=== PATIENT | male | born 1975 | race Hispanic/Latino ===

== ENCOUNTER 2018-08-01 04:45 | Emergency (ER) | payer OTHER ==
[2018-08-01] MEDS ORDERED: TORADOL IV ONE (08:21)
[2018-08-01] MEDS ORDERED: CLEOCIN 600 MG/50 mL 600 MG/50 ML BAG IV ONE (08:22)
[2018-08-01] MEDS ORDERED: XYLOCAINE 1%/ EPI 1:100,000 INFILTRATI NR (09:00)
[2018-08-01] MEDS ORDERED: XYLOCAINE 2%/ EPI 1:200,000 INFILTRATI ONE (09:03)
--- NOTE | 2018-08-01 09:22 | Emergency Department Report ---
Abscess Boil HPI - HPI Time Seen by Provider: 08/01/18 08:12 Duration: 3 Days Location: Upper Extremity (Right sided, thinks he may have been bitten by something at work, works construction/handy work) History: Yes Pain (/10), Yes Purulent Drainage (started to drain last night), Yes Insect Bite (possibly), No Fever, No Numbness, No Foreign Body, No Previous History Home Medications: Previous Rx's Medication Instructions Recorded Last Taken Type Clindamycin [Clindamycin CAP] 300 mg PO Q8H #21 cap 08/01/18 Unknown Rx HYDROcodone/ACETAMINOPHEN 1 each PO Q6HR PRN #12 tablet 08/01/18 Unknown Rx [Hydrocodone-Acetamin 5-325 mg] Ibuprofen [Ibu] 800 mg PO Q8H PRN #20 tablet 08/01/18 Unknown Rx Allergies/Adverse Reactions: Allergies Allergy/AdvReac Type Severity Reaction Status Date / Time Penicillins AdvReac Rash Verified 08/01/18 08:57 ED Review of Systems ROS: Stated complaint: Other details as noted in HPI Comment: All other systems reviewed and negative ED Past Medical Hx - Medications Home Medications: Home Medications Medication Instructions Recorded Confirmed Last Taken Type Clindamycin [Clindamycin CAP] 300 mg PO Q8H #21 cap 08/01/18 Unknown Rx HYDROcodone/ACETAMINOPHEN 1 each PO Q6HR PRN #12 tablet 08/01/18 Unknown Rx [Hydrocodone-Acetamin 5-325 mg] Ibuprofen [Ibu] 800 mg PO Q8H PRN #20 tablet 08/01/18 Unknown Rx ED Abscess Boil Physical Exam - Exam General: Vital signs noted. No distress. Alert and acting appropriately. Front/Back of Body, Lg (Color): 1 - abcess with surrounding cellulitis Size: 2 cm Exam: Yes Tenderness, Yes Fluctuance, Yes Surrounding Cellulites/Erythema, Yes Heart Murmur, Yes Normal Neurologic Exam, Yes Normal Circulation, No Lymphangitis, No Crepitation I & D Note - I & D Note I & D Note: The wound was prepped and draped sterilely. Iodine was used to clean the wound. The wound was injected with lidocaine with epinephrine approximately 10 mL and good anesthesia was achieved. Blood blade was used to make an incision and the wound was drained. Loculations were broken up with hemostat. The wound was irrigated with normal saline and packed without form gauze. Patient tolerated procedure well. Critical care attestation.: If time is entered above; I have spent that time in minutes in the direct care of this critically ill patient, excluding procedure time. ED Disposition Clinical Impression: Abscess, Cellulitis Disposition: - TO HOME OR SELFCARE Is pt being admited?: No Does the pt Need Aspirin: No Condition: Stable Instructions: Abscess (ED), Abscess Incision and Drainage (ED) Referrals: PRIMARY CARE, [Primary Care Provider] - 3-5 Days Time of Disposition: 09:23
== END 2018-08-01 09:36 | disposition home or self-care (01) ==
LOC: ED 04:45
DX: L02.411 Cutaneous abscess of right axilla (principal); Z88.0 Allergy status to penicillin
CPT/HCPCS: 10060; 96365; 96375; 99282; J1885